=== PATIENT | male | born 1980 | race Caucasian/White ===

== ENCOUNTER 2023-10-18 10:46 | Emergency (ER) | payer OTHER, SELFPAY ==
[2023-10-18 11:08] VITALS: BP 151/106; PULSE 77; RESP 16; TEMP 36.6; O2SAT 97
--- NOTE | 2023-10-18 11:27 | ED.LOWEXIN ---
HPI - Extremity Injury (Lower) General Chief Complaint: Extremity Injury, Lower Stated Complaint: Left Hip/Leg Pain Time Seen by Provider: 10/18/23 11:28 Source: patient Mode of arrival: ambulatory Limitations: no limitations History of Present Illness HPI Narrative: 43-year-old male presented for complaint of pain to the left lateral calf and left foot for over one week. Symptoms started after moving a pinball machine. He states the symptoms started with posterior left hip pain shooting down to the foot. Pain causes him to limp, and was worse when laying down, but is improving. He was seen by chiropractor yesterday, and took multiple otc pain meds. States the chiropractor adjusted him and pushed on the hip, and caused pain and was unable to walk after the treatment. Denies back pain, numbness, tingling, weakness of the lower extremities, saddle paresthesia or loss of bowel or bladder. Related Data Allergies Allergy/AdvReac Type Severity Reaction Status Date / Time No Known Allergies Allergy Verified 10/18/23 11:21 Review of Systems Review of Systems: CONSTITUTIONAL: Denies body aches, fever, chills EYES: Denies visual changes ENT: Denies rhinorrhea, congestion CARDIOVASCULAR: Denies chest pain, palpitations, or edema. RESPIRATORY: Denies cough or dyspnea. GASTROINTESTINAL: Denies abdominal pain, nausea, vomiting, or diarrhea. SKIN: Denies rash, itching, or wounds. MUSCULOSKELETAL: Reports LLE pain Denies back pain, myalgia. NEUROLOGIC: Denies headache, numbness, tingling, or weakness. All systems reviewed & are unremarkable except as noted in HPI and below PMFSH Past Medical History Medical History (Updated 10/18/23 @ 11:39 by No Aviles, AURELIANO) No pertinent past medical history Comments At time of signature, I have reviewed and agree with nursing past medical, surgical, social and family history unless otherwise noted. Please see nursing chart for further information. There is no relevant family history pertinent to the presenting complaint Exam Narrative: GENERAL: Well-appearing CHEST: Speaks in full sentences. No respiratory distress. HEART: Regular rate and rhythm. Normal and equal peripheral pulses. EXTREMITIES: LLE has normal strength and sensation, normal range of motion at hip. Tender to Lateral calf, and lateral hip. No edema or ecchymosis, No point tenderness. No open wounds, or obvious deformity; alignment normal, pulse palpable and equal bilaterally, skin warm, dry, pink. Capillary refill less than 3 seconds. Slight limp. SKIN: Warm, dry, no rash. NEURO: Alert and oriented x3. PSYCH: Normal mood and affect Course Course Emergency Course: Patient is aware of diagnosis, understands and agrees to treatment plan. Anticipatory guidance given. Patient agrees to follow-up as directed and is aware of reasons to seek care at the emergency department. Portions of this record may have been created with voice recognition software Level of Care: Express Care Visit Vital Signs Vital signs: Vital Signs Temperature 97.9 F 10/18/23 11:08 Pulse Rate 77 10/18/23 11:08 Respiratory Rate 16 10/18/23 11:08 Blood Pressure 151/106 H 10/18/23 11:08 Pulse Oximetry 97 10/18/23 11:08 Oxygen Delivery Room Air 10/18/23 11:08 Temperature 97.9 F 10/18/23 11:08 Pulse Rate 77 10/18/23 11:08 Respiratory Rate 16 10/18/23 11:08 Blood Pressure 151/106 H 10/18/23 11:08 Pulse Oximetry 97 10/18/23 11:08 Oxygen Delivery Room Air 10/18/23 11:08 Reviewed MDM - Extremity Injury (Lower) MDM Narrative Medical decision making narrative: Discussed physical exam findings. Advised supportive measures and signs/symptoms to go to the ER. Pt is appropriate for outpt treatment and f/u. Differential Diagnosis Differential diagnosis: Likely other (Lumbar radiculopathy, sciatica, piriformis syndrome, diskitis, muscle strain, degenerative joint disease, cauda equina) Discha
== END 2023-10-18 11:40 | disposition home or self-care (01) ==
PROVIDERS: Emergency Provider Nurse Practitioner Family
DX: M79.662 Pain in left lower leg (principal); M25.552 Pain in left hip
CPT/HCPCS: 99203; G0463